=== PATIENT | female | born 1955 | race Caucasian/White ===

== ENCOUNTER 2018-03-23 09:55 | Day surgery (SDC) | payer MEDICARE, OTHER ==
[~2018-03-23] VITALS: Ht 170.2 cm; Wt 77.1 kg
[~2018-03-23 09:55] MED LIST: CURCUMIN1 GM MISC; DULOXETINE HCL40 MG PO; LEVOTHYROXINE88 MCG PO; METOPROLOL TART25 MG PO; TRAZODONE HCL150 MG PO; VITAMIN B COMP1 EAC1 PO; VITAMIN D35000 UNI1 PO
--- NOTE | 2018-03-23 17:44 | NUR ---
03/23/18 1744 My Romeo 1730- PT ARRIVES TO PACU NONAROUSABLE TO NOXIOUS STIMULI. PT NEEDING JAW THRUST TO MAINTAIN AIRWAY BY WILLIE CLEMENTS. OPA IN PLACE. OXYGEN SAT 100% ON 6L VIA MASK. 1732- PT IS MORE AROUSABLE AND TRYING TO PUSH THE OPA OUT. OPA REMOVED. JAW THRUST STOPPED. RESP EVEN AND UNLABORED. OXYGEN SAT HIGH 90'S TO 100% ON 6L VIA MASK. 1739- OXYGEN TURNED OFF. OXYGEN SAT HIGH 90'S ON RA.
--- NOTE | 2018-03-23 18:00 | NUR ---
Pt arrived to room alert and oriented. denies pain, nausea, sob or any other symptoms. Bedside report received from My TAPIA. Dinner ordered for patient and pt's s/o. Call light and h20 in reach and warm blanket provided. No needs voiced. Family remains at bedside.
--- NOTE | 2018-03-24 11:25 | EKG ---
[facility] [address] [facility] [place], [place] [address] Signed Normal sinus rhythm Incomplete right bundle branch block Borderline ECG When compared with ECG of 21-MAR-2018 11:44, No significant change was found Confirmed by JOAN URIAS DO ([id number]) on 03/24/2018 11:25:42 AM Electronically Signed By: JOAN URIAS DO 03/24/18 1125 PATIENT NAME: TRAVIS CABALLERO ANN Electrocardiogram DATE OF : 57 PHYSICIAN: JOAN URIAS DO REPORT #: [id number] REPORT IS CONFIDENTIAL AND NOT TO BE RELEASED WITHOUT AUTHORIZATION
[2018-03-24] MEDS ORDERED: IBUPROFEN800 MG PO (11:29)
[2018-03-24] MEDS ORDERED: NORCO 5-325 TA1 EACH PO (11:29)
--- NOTE | 2018-04-03 07:48 | OR ---
[facility] [address] [place], [place] [address] Signed DATE OF OPERATION: 03/23/2018 SURGEON: Gogo Goel DO PREOPERATIVE DIAGNOSES: 1. Endometrial mass. 2. Postmenopausal status. POSTOPERATIVE DIAGNOSES: 1. Endometrial mass. 2. Postmenopausal status. 3. Iatrogenic Asherman Syndrome. PROCEDURES: Hysteroscopy, dilation and curettage. ANESTHESIA: General. ESTIMATED BLOOD LOSS: 10 mL. COMPLICATIONS: None. Biopsy, endometrial curetting. FINDINGS: Normal postmenopausal genitalia. Normal cervix and vagina. On hysteroscopy, normal endocervical cavity with the uterine cavity completely ablated due to prior ablation. No endometrial mass noted. INDICATION: Ms. Gee Bhardwaj is a pleasant 62-year-old white postmenopausal female who initially presented to me for pelvic pain. An ultrasound was performed, this showed no clear reason for pelvic pain, however, a small endometrial cyst 5 to 6 mm was noted. While the patient has no complaints of postmenopausal bleeding, she became very concerned about this possible surgical intervention. We viewed this as likely due to her history of endometrial ablation, however, the patient wished to proceed with procedure. Risks, benefits, and alternatives were discussed in detail with the patient. The patient Electronically Signed By: GOGO GOEL DO 04/03/18 0748 PATIENT NAME: TRAVIS CABALLERO OPERATIVE REPORT DATE OF : 57 REPORT #: [id number] PHYSICIAN: GOGO GOEL DO PCP: BETTE HURD MD REPORT IS CONFIDENTIAL AND NOT TO BE RELEASED WITHOUT AUTHORIZATION [facility] [address] [facility] [place], [place] [address] Signed understands and wished to proceed. TECHNIQUE: The patient was taken to the operating room where a time-out was performed to confirm correct patient, correct procedure. General anesthesia was adequately established. The patient was prepped and draped in dorsal lithotomy position with feet in Yellofin stirrups. ICPs were on and running. The cervix was gently dilated using Hegar dilator and an operative hysteroscope was placed in the cervical os and advanced under direct visualization. Normal endocervical cavity was noted. The uterine cavity was completely ablated. The hysteroscope was used to gently dilate 2 to 3 more cm beyond the internal os, contined dilation or advancing of hysteroscope was aborted at that point for risk of possible perforation of the uterus. Endometrial cavity unable to be identified due to iatrogenic Asherman's. No endometrial mass or abnormality was noted. Gentle curettage was then performed with scant amount of tissue. This was sent to pathology. Weighted speculum was taken from the vagina, and the patient was taken to PACU in good and stable condition. Sponge, needle, and instrument counts correct x2 at the end of procedure. Gogo Goel DO JDW/MODL /[id number] Copies: ~ Electronically Signed By: GOGO GOEL DO 04/03/18 0748 PATIENT NAME: TRAVIS CABALLERO ANN OPERATIVE REPORT DATE OF : 57 REPORT #: [id number] PHYSICIAN: GOGO GOEL DO PCP: BETTE HURD MD REPORT IS CONFIDENTIAL AND NOT TO BE RELEASED WITHOUT AUTHORIZATION
== END 2018-03-23 19:45 | disposition home or self-care (01) ==
LOC: DS 09:55 → OPS 09:55
PROVIDERS: Obstetrics & Gynecology
PROC: 0UDB8ZZ Extraction of Endometrium, Via Natural or Artificial Opening Endoscopic (ICD-10-PCS; principal; 2018-03-23 10:45)
DX: N85.00 Endometrial hyperplasia, unspecified (principal); N71.1 Chronic inflammatory disease of uterus; M79.7 Fibromyalgia; M19.90 Unspecified osteoarthritis, unspecified site; E03.9 Hypothyroidism, unspecified; E06.3 Autoimmune thyroiditis; G89.29 Other chronic pain; R42 Dizziness and giddiness; R53.82 Chronic fatigue, unspecified; Z87.891 Personal history of nicotine dependence; Z88.0 Allergy status to penicillin; Z79.899 Other long term (current) drug therapy
CPT/HCPCS: 00952; 88305; 93005; 93010; J1100; J1885; J2250; J2405; J2704; J2765; J3010; J7120

== ENCOUNTER 2019-08-24 18:03 | Emergency (ER) | payer MEDICARE, OTHER ==
[~2019-08-24] VITALS: Ht 170.2 cm; Wt 77.1 kg
--- OUTSIDE RECORDS SUMMARY | ~2019-08-24 | XMS ---
Demographics + + + | Address | [address] | | | [place] [address] | + + + | Preferred Language | Unknown | + + + | Marital Status | Unknown | + + + | Confucianist Affiliation | Unknown | + + + | Race | Unknown | + + + | Ethnic Group | Unknown | + + + Author + + + | Author | [facility] | + + + | Organization | [facility] | + + + | Address | [address] | | | [place] [address] | + + + | Phone | | + + + Care Team Providers + + + + | Care Hydraulic Design Engineer Name | Role | Phone | + + + + Unavailable | Unavailable | + + + + PROBLEMS +---------+ + + +--------+ + + | Type | Condition | ICD9-CM | [id number] | Onset | Condition | SNOMED | | | | Code | Code | Dates | Status | Code | +---------+ + + +--------+ + + | Problem | Hyperchole | E78.00 | | | Active | 06733308 | | | sterolemia | | | | | | +---------+ + + +--------+ + + | Problem | Thyroid | E04.1 | | | Active | 161773317 | | | nodule | | | | | | +---------+ + + +--------+ + + | Problem | Encounter | | Z13.89 | | Active | 390951076 | | | for | | | | | | | | screening | | | | | | | | for other | | | | | | | | disorder | | | | | | +---------+ + + +--------+ + + | Problem | Colon | K63.5 | | | Active | 96481247 | | | polyps | | | | | | +---------+ + + +--------+ + + | Problem | Hypothyroi | | E03.9 | | Active | 21052989 | | | dism | | | | | | +---------+ + + +--------+ + + | Problem | Screening | | Z12.11 | | Active | 587520159 | | | for colon | | | | | | | | cancer | | | | | | +---------+ + + +--------+ + + | Problem | Screening | Z12.39 | | | Active | 720420059 | | | for breast | | | | | | | | cancer | | | | | | +---------+ + + +--------+ + + | Problem | History of | Z87.891 | | | Active | 0958478760 | | | smoking | | | | | 3941781 | +---------+ + + +--------+ + + | Problem | Screening | Z12.4 | | | Active | 456503440 | | | for | | | | | | | | cervical | | | | | | | | cancer | | | | | | +---------+ + + +--------+ + + | Problem | Screening | Z13.820 | | | Active | 134565910 | | | for | | | | | | | | osteoporos | | | | | | | | is | | | | | | +---------+ + + +--------+ + + | Problem | Hepatitis | | B19.20 | | Active | 38921118 | | | C | | | | | | +---------+ + + +--------+ + + | Problem | 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 | | | Active | | | | splenectom | | | | | | | | y syndrome | | | | | | +---------+ + + +--------+ + + | Problem | PAF | I48.0 | | | Active | 11086747 | | | (paroxysma | | | | | | | | l atrial | | | | | | | | fibrillati | | | | | | | | on) | | | | | | +---------+ + + +--------+ + + | Problem | ASCVD | I25.10 | | | Active | 48370799 | | | (arteriosc | | | | | | | | lerotic | | | | | | | | cardiovasc | | | | | | | | ular | | | | | | | | disease) | | | | | | +---------+ + + +--------+ + + | Problem | Osteoarthr | M15.9 | | | Active | 814346339 | | | itis | | | | | | | | involving | | | | | | | | multiple | | | | | | | | joints on | | | | | | | | both sides | | | | | | | | of body | | | | | | +---------+ + + +--------+ + + | Problem | Fibromyalg | | M79.7 | | Active | 563371606 | | | ia | | | | | | +---------+ + + +--------+ + + | Problem | Chronic | | G89.4 | | Active | 779224052 | | | pain | | | | | | | | syndrome | | | | | | +---------+ + + +--------+ + + | Problem | Chronic | | R53.82 | | Active | 67214893 | | | fatigue, | | | | | | | | unspecifie | | | | | | | | d | | | | | | +---------+ + + +--------+ + + | Problem | Marco Antonio' | E06.3 | | | Active | 65905974 | | | s | | | | | | | | thyroiditi | | | | | | | | s | | | | | | +---------+ + + +--------+ + + | Problem | Hypertrigl | | E78.1 | | Active | 224562002 | | | yceridemia | | | | | | +---------+ + + +--------+ + + ALLERGIES + + + + +--------+ | Substance | Reaction | Event Type | Date | Status | + + + + +--------+ | Penicillin | trouble | Drug Allergy | June, | Active | | | breathing, rash | | | | + + + + +--------+ SOCIAL HISTORY No smoking Hx information available PLAN OF CARE + +---------+ | Activity | Details | + +---------+ +---+ | | +---+ + + + | Follow Up | 4 Weeks Reason:null | + + + VITAL SIGNS + + + + | Height | 5 ft 7 in in | 2016-07-16 | + + + + | Weight | 168 lbs | 2016-07-16 | + + + + | BMI | 26.31 kg/m2 | 2016-07-16 | + + + + | Temperature | 98.1 degrees Fahrenheit | 2016-07-16 | + + + + | Heart Rate | 70 /min | 2016-07-16 | + + + + | Blood pressure systolic | 129 mm Hg | 2016-07-16 | + + + + | Blood pressure diastolic | 84 mm Hg | 2016-07-16 | + + + + MEDICATIONS + + + + + + + +--------+ | Medicati | Instruct | Dosage | Frequenc | Start | End Date | Duration | Status | | on | ions | | y | Date | | | | + + + + + + + +--------+ | Levothyr | Orally | 1 tablet | 24h | 22 Dec, | | 30 | Active | | oxine | Once a | | | 2016 | | day(s) | | | Sodium | day | | | | | | | | 75 MCG | | | | | | | | + + + + + + + +--------+ | Trazodon | Orally | 0.5 | 24h | | | 90 days | Active | | e 150 MG | Once a | tablet | | | | | | | | day | at | | | | | | | | | bedtime | | | | | | | | | as | | | | | | | | | needed | | | | | | + + + + + + + +--------+ | Metoprol | Orally | 1 tablet | 12h | | | 90 days | Active | | ol | Twice a | | | | | | | | Tartrate | day | | | | | | | | 25 MG | | | | | | | | + + + + + + + +--------+ | Aspir-81 | Orally | 1 tablet | 24h | | | | Active | | 81 MG | Once a | | | | | | | | | day | | | | | | | + + + + + + + +--------+ | Duloxeti | Orally | 1 | 24h | 20 Oct, | | 90 days | Active | | ne HCl | Once a | capsule | | 2016 | | | | | 40 MG | day | | | | | | | + + + + + + + +--------+ RESULTS + +--------+ + + | Name | Result | Date | Reference Range | + +--------+ + + | TSH | | 2016-07-16 | | + +--------+ + + | TSH | | | | + +--------+ + + | Vitamin D, 1,25 | | 2016-07-16 | | | Dihydroxy | | | | + +--------+ + + | Vitamin D, 1,25 | | | | | Dihydroxy | | | | + +--------+ + + | Lipid Panel | | 2016-07-16 | | + +--------+ + + | Cholesterol, Total | | | | + +--------+ + + | Triglycerides | | | | + +--------+ + + | HDL Cholesterol | | | | + +--------+ + + | VLDL Cholesterol | | | | | Mark | | | | + +--------+ + + | LDL Cholesterol | | | | | Calc | | | | + +--------+ + + | Comprehensive | | 2016-07-16 | | | Metabolic Panel | | | | + +--------+ + + | Vitamin D 25-OH | | 2016-07-16 | | + +--------+ + + | VITAMIN D 25-OH | | | | + +--------+ + + | CBC with | | 2016-07-16 | | | Differential Count | | | | + +--------+ + + PROCEDURES + + + + + | Procedure | Date Ordered | Related Diagnosis | Body Site | + + + + + | Office Visit, Est | July 16, 2016 | | | | Pt., Level 4 | | | | + + + + + IMMUNIZATIONS No Known Immunizations"
--- OUTSIDE RECORDS SUMMARY | ~2019-08-24 | XMS ---
Demographics + + + | Address | [address] | | | [place] [address] | + + + | Preferred Language | Unknown | + + + | Marital Status | Unknown | + + + | Sabianism Affiliation | Unknown | + + + | Race | Unknown | + + + | Ethnic Group | Unknown | + + + Author + + + | Author | [facility] | + + + | Organization | [facility] | + + + | Address | [address] | | | [place] [address] | + + + | Phone | | + + + Care Team Providers + + + + | Care Sephora Operations Consultant Name | Role | Phone | + + + + Unavailable | Unavailable | + + + + PROBLEMS +---------+ + + +--------+ + + | Type | Condition | ICD9-CM | [id number] | Onset | Condition | SNOMED | | | | Code | Code | Dates | Status | Code | +---------+ + + +--------+ + + | Problem | Encounter | | Z13.89 | | Active | 770847474 | | | for | | | | | | | | screening | | | | | | | | for other | | | | | | | | disorder | | | | | | +---------+ + + +--------+ + + | Problem | History of | Z87.891 | | | Active | [id number] | | | smoking | | | | | 0294432 | +---------+ + + +--------+ + + | Problem | Thyroid | E04.1 | | | Active | 431287217 | | | nodule | | | | | | +---------+ + + +--------+ + + | Problem | Vitamin D | | E55.9 | | Active | 40905073 | | | deficiency | | | | | | +---------+ + + +--------+ + + | Problem | PAF | I48.0 | | | Active | 83177110 | | | (paroxysma | | | | | | | | l atrial | | | | | | | | fibrillati | | | | | | | | on) | | | | | | +---------+ + + +--------+ + + | Problem | Colon | K63.5 | | | Active | 01570370 | | | polyps | | | | | | +---------+ + + +--------+ + + | Problem | Hypothyroi | | E03.9 | | Active | 96374963 | | | dism | | | | | | +---------+ + + +--------+ + + | Problem | Screening | Z13.820 | | | Active | 051808360 | | | for | | | | | | | | osteoporos | | | | | | | | is | | | | | | +---------+ + + +--------+ + + | Problem | Screening | Z12.39 | | | Active | 497262625 | | | for breast | | | | | | | | cancer | | | | | | +---------+ + + +--------+ + + | Problem | Screening | | Z12.11 | | Active | 011588863 | | | for colon | | | | | | | | cancer | | | | | | +---------+ + + +--------+ + + | Problem | Screening | Z12.4 | | | Active | 772254497 | | | for | | | [...] | | G89.4 | | Active | 369207744 | | | pain | | | | | | | | syndrome | | | | | | +---------+ + + +--------+ + + | Problem | ASCVD | I25.10 | | | Active | 73549995 | | | (arteriosc | | | | | | | | lerotic | | | | | | | | cardiovasc | | | | | | | | ular | | | | | | | | disease) | | | | | | +---------+ + + +--------+ + + | Problem | Hepatitis | | B19.20 | | Active | 65866742 | | | C | | | | | | +---------+ + + +--------+ + + | Problem | Fibromyalg | | M79.7 | | Active | 703645987 | | | ia | | | | | | +---------+ + + +--------+ + + | Problem | Chronic | | R53.82 | | Active | 21194621 | | | fatigue, | | | | | | | | unspecifie | | | | | | | | d | | | | | | +---------+ + + +--------+ + + | Problem | Marco Antonio' | E06.3 | | | Active | 82450991 | | | s | | | | | | | | thyroiditi | | | | | | | | s | | | | | | +---------+ + + +--------+ + + | Problem | Hypertrigl | | E78.1 | | Active | 119577652 | | | yceridemia | | | | | | +---------+ + + +--------+ + + | Problem | Osteoarthr | M15.9 | | | Active | 703733385 | | | itis | | | [...] | E78.00 | | | Active | 09151074 | | | sterolemia | | | | | | +---------+ + + +--------+ + + ALLERGIES + + + + +--------+ | Substance | Reaction | Event Type | Date | Status | + + + + +--------+ | Penicillin | trouble | Drug Allergy | Jul, | Active | | | breathing, rash | | | | + + + + +--------+ SOCIAL HISTORY No smoking Hx information available PLAN OF CARE + +---------+ | Activity | Details | + +---------+ +---+ | | +---+ + + + | Follow Up | 3 Months Reason:null | + + + VITAL SIGNS + + + + | Height | 5 ft 7 in in | 2016-08-13 | + + + + | Weight | 169.4 lbs | 2016-08-13 | + + + + | BMI | 26.53 kg/m2 | 2016-08-13 | + + + + | Temperature | 97.3 degrees Fahrenheit | 2016-08-13 | + + + + | Heart Rate | 66 /min | 2016-08-13 | + + + + | Blood pressure systolic | 99 mm Hg | 2016-08-13 | + + + + | Blood pressure diastolic | 69 mm Hg | 2016-08-13 | + + + + MEDICATIONS + [...] Orally | 1 | 24h | 20 Nov, | | 90 days | Active | | ne HCl | Once a | capsule | | 2015 | | | | | 40 MG [...] Range | + +--------+ + + | DEXA Hip and Spine | | 2016-10-04 | | + +--------+ + + PROCEDURES + + + + + | Procedure | Date Ordered | Related Diagnosis | Body Site | + + + + + | Office Visit, Est | August 13, 2016 | | | | Pt., Level 3 | | | | + + + + + | [facility] MED/CURRENT | August 13, 2016 | | | | MED MERGE | | | | + + + + + IMMUNIZATIONS No Known Immunizations"
[~2019-08-24 18:03] MED LIST changes: +IBUPROFEN800 MG PO; +NORCO 5-325 TA1 EACH PO
[2019-08-24] MEDS ORDERED: TRANSDERM-SCOP1 EACH TD (21:48)
[2019-08-24] MEDS ORDERED: ZOFRAN4 MG PO (21:48)
[2019-08-24] MEDS ORDERED: MECLIZINE HCL25 MG PO (21:48)
--- NOTE | 2019-08-25 17:17 | EKG ---
[facility] [address] [facility] [place] [address] Signed Normal sinus rhythm Incomplete right bundle branch block Borderline ECG Confirmed by SOM WILKERSON MD ([id number]) on 08/25/2019 5:17:27 PM Electronically Signed By: SOM WILKERSON MD 08/25/19 1717 PATIENT NAME: TRAVIS MENCHACA ANN Electrocardiogram DATE OF : 57 PHYSICIAN: SOM WILKERSON MD REPORT #: [id number] REPORT IS CONFIDENTIAL AND NOT TO BE RELEASED WITHOUT AUTHORIZATION
== END 2019-08-24 22:04 | disposition home or self-care (01) ==
LOC: ED 18:03
DX: R42 Dizziness and giddiness (principal); I48.91 Unspecified atrial fibrillation; Z87.891 Personal history of nicotine dependence; Z88.0 Allergy status to penicillin; Z79.899 Other long term (current) drug therapy
CPT/HCPCS: 70496; 70498; 80053; 81001; 83735; 84484; 85025; 93005; 93010; 96361; 99284-25; J2405; J7030; Q9967

== ENCOUNTER 2019-09-25 06:35 | Day surgery (SDC) | payer MEDICARE, OTHER ==
[~2019-09-25] VITALS: Ht 170.2 cm; Wt 75.3 kg
--- NOTE | ~2019-09-25 | OR ---
[facility] [address] [place], [place] [address] Draft DATE OF OPERATION: 09/25/2019 SURGEON: Alvaro Sandhu MD PREOPERATIVE DIAGNOSES: Chronic tonsillitis, tonsil lithiasis. POSTOPERATIVE DIAGNOSES: Chronic tonsillitis, tonsil lithiasis. PROCEDURE: Tonsillectomy. ANESTHESIA: General orotracheal. REFRIGERATION INSTALLER: Demetrio. PREOPERATIVE HISTORY: Ms. Bhardwaj is a 64-year-old lady with chronic tonsillitis, multiple infections, tonsil lithiasis, chronic sore throats, cryptic tonsils, taken to the operating room for the above-mentioned procedures. OPERATIVE PROCEDURE AND FINDINGS: After informed consent, the patient was taken to the operating room and placed in supine position where general orotracheal anesthesia was induced. The patient and procedure were verified. The patient was repositioned. McIvor mouth gag placed into suspension. Headlight exam of the pharynx showed cryptic tonsillithic tonsils. Left tonsil was grasped with a tenaculum, retracted medially and removed from its fossa with Coblation with mucosal sparing incisions. The field was dry after the procedure. Same procedure on the right tonsil, tonsils were sent to pathology. Mouth gag was released for several minutes. Reinspection showed no bleeding points. The pharynx was suctioned clear of blood secretions. Mouth gag was removed. The patient was awakened, extubated, transported to the recovery room in good condition. No complications. BLOOD LOSS: Minimal. SPECIMEN: PATIENT NAME: TRAVIS BHARDWAJ OPERATIVE REPORT DATE OF : 57 REPORT #: [id number] PHYSICIAN: ALVARO SANDHU MD PCP: BETTE HURD MD REPORT IS CONFIDENTIAL AND NOT TO BE RELEASED WITHOUT AUTHORIZATION [address] [place], [place] [address] Draft To pathology. DRAINS: No drains. Alvaro Sandhu MD /FRANCISCO J /[id number] Copies: ~ PATIENT NAME: TRAVIS BHARDWAJ OPERATIVE REPORT DATE OF : 57 REPORT #: [id number] PHYSICIAN: ALVARO SANDHU MD PCP: BETTE HURD MD REPORT IS CONFIDENTIAL AND NOT TO BE RELEASED WITHOUT AUTHORIZATION
[~2019-09-25 06:35] MED LIST changes: +MECLIZINE HCL25 MG PO; +NALTREXONE HCL50 MG PO; +TRANSDERM-SCOP1 EACH TD; +ZOFRAN4 MG PO
--- NOTE | 2019-09-25 08:19 | NUR ---
09/25/19 0819 Karolyn Romero 0811-PATIENT ARRIVED TO PACU ON 6L MASK NONAROUSABLE ORAL AIRWAY IN PLACE. RN DOING JAW THRUST TO MAINTAIN OPEN AIRWAY. NO DRAINAGE FROM MOUTH. BP 80'S 0814-DAVID RING ADMINISTERED EPHEDRINE FOR BP. PATIENT MAINTAING OWN AIRWAY PATIENTS HEAD REPOSITIONED.
--- NOTE | 2019-09-25 09:09 | NUR ---
PT IS BACK TO FROM PACU. SHE IS DROWSY, REPORTING ZERO PAIN. CALL LIGHT WITHIN REACH. WATER ON BEDSIDE TABLE. NO ADDITIONAL NEEDS.
[2019-09-25] MEDS ORDERED: HYDROCODONE-ACE15 M3 PO (09:44)
--- NOTE | 2019-09-25 10:05 | NUR ---
PT IS ALERT, ORIENTED AND MENTIONED THAT SHE IS MUCH MORE RELAXED NOW THAT MARÍA ELENA HERNANDEZ HELPED HER. ALL QUESTIONS ASKED WERE ANSWERED. DR SANDHU IN, GAVE BLESSING, WILL FOLLOW
--- NOTE | 2019-09-25 11:23 | NUR ---
PT REPORTS SHE IS FEELING GOOD, NO PAIN. SHE WOULD LIKE TO GO HOME AT THIS TIME. SHE IS TOLERATING WATER AND PUDDING.
--- NOTE | 2019-09-25 11:29 | NUR ---
PT IS EDUCATED ON HOW TO BEST DRESS HERSELF. SHE IS INSTRUCTED TO OPEN HER CURTAIN WHEN READY.
--- NOTE | 2019-09-25 11:45 | NUR ---
PT IS GIVEN VERBAL DC INSTRUCTIONS, SHE VERBALIZES UNDERSTANDING. QUESTIONS ARE ASKED AND ANSWERED. PT IS TAKEN TO VEHICLE VIA WC, SHE TRANSFERS HERSELF FROM WC TO VEHICLE.
--- NOTE | 2019-09-26 11:39 | PATH ---
[facility] [address] [place], [place] [address] Signed SPECIMEN(S): A LEFT TONSIL SPECIMEN(S): B RIGHT TONSIL SPECIMEN SOURCE: A. LEFT TONSIL B. RIGHT TONSIL CLINICAL HISTORY: Pre: Chronic tonsillitis, tonsillithiasis. Post: Tonsillectomy. FINAL PATHOLOGIC DIAGNOSIS: A. Tonsil, left, tonsillectomy: - Reactive follicular lymphoid hyperplasia. B. Tonsil, right , tonsillectomy: - Reactive follicular lymphoid hyperplasia. NAL:dks:C2NR MICROSCOPIC EXAMINATION: Histologic sections of all submitted blocks are examined by light microscopy. These findings, together with the gross examination, support the pathologic diagnosis. GROSS DESCRIPTION: Two specimens are received in two containers, labeled "LT." A. The specimen, labeled "LT, left tonsil," is received in formalin and consists of a 3.5 x 2.2 x 0.9 cm palatine tonsil. The mucosal surface is pink-batista and smooth with areas of folds. Cut sections reveal a pink, homogeneous cut surface with the usual crypt-like architecture. The specimen is inked. Magnetizer sections are submitted in cassette (A1). B. The specimen, labeled "LT, right tonsil," is received in formalin and consists of a 3.5 x 1.8 x 1.2 cm palatine tonsil. The mucosal surface is pink-batista and smooth with areas of folds. Cut sections reveal a pink, homogeneous cut surface with the usual crypt-like architecture. Magnetizer sections are submitted in cassette (A1). JS (under the direct supervision of a pathologist) The Gross Description was prepared using a voice recognition system. The report was reviewed for accuracy; however, sound-alike word errors, addition and/or deletions may occur. If there is any question about this report, please contact Client Services. PATIENT NAME: TRAVIS MENCHACA PATHOLOGY DATE OF : 57 REPORT #: [id number] PHYSICIAN: YANICK RAI PCP: BETTE HURD MD REPORT IS CONFIDENTIAL AND NOT TO BE RELEASED WITHOUT AUTHORIZATION [facility] [address] [place], [place] [address] Signed PERFORMING LABORATORY: The technical component was performed by [facility], [address] [place] [address] (Church Organist: Kallie Black MD; CLIA# [id number]). [facility], [address] [address] (CLIA# [id number]). Diagnostician: Sarah Galdamez MD Pathologist Electronically Signed 09/26/2019 Copies: ~ PATIENT NAME: TRAVIS MENCHACA PATHOLOGY DATE OF : 57 REPORT #: [id number] PHYSICIAN: YANICK PATHOLOGY PCP: BETTE HURD MD REPORT IS CONFIDENTIAL AND NOT TO BE RELEASED WITHOUT AUTHORIZATION
== END 2019-09-25 11:40 | disposition home or self-care (01) ==
LOC: OPS 06:35 → DS 06:35 → OPS 06:45
PROVIDERS: Otolaryngology
PROC: 0CBPXZZ Excision of Tonsils, External Approach (ICD-10-PCS; principal; 2019-09-25 06:45)
DX: J35.01 Chronic tonsillitis (principal); F32.9 Major depressive disorder, single episode, unspecified; M79.7 Fibromyalgia; I48.91 Unspecified atrial fibrillation; K21.9 Gastro-esophageal reflux disease without esophagitis; Z88.0 Allergy status to penicillin; Z79.899 Other long term (current) drug therapy; Z87.891 Personal history of nicotine dependence
CPT/HCPCS: 00170; J0330; J1100; J1885; J2250; J2405; J2704; J2765; J3010; J7121